=== PATIENT | female | born 1980 | race Caucasian/White ===

== ENCOUNTER 2024-07-27 12:19 | Outpatient (CLI) | payer OTHER, SELFPAY ==
[2024-07-27 12:50] LABS: Anion Gap 7 mmol/L (4-12); Blood Urea Nitrogen 10 mg/dL (7-17); Calcium 8.5 mg/dL (8.4-10.2); Carbon Dioxide 27 mmol/L (22-30); Chloride 102 mmol/L (98-107); Estimated Glomerular Filt Rate > 60; Glucose 135 mg/dL (65-110); Potassium 4.1 mmol/L (3.4-5.0); Sodium 136 mmol/L (137-145)
== END 2024-07-27 12:20 | disposition home or self-care (01) ==
PROVIDERS: Visit Provider Anesthesiology
DX: E11.9 Type 2 diabetes mellitus without complications (principal)
CPT/HCPCS: 36415; 80048

== ENCOUNTER 2024-07-29 01:03 | Day surgery (SDC) | payer OTHER, SELFPAY ==
[2024-07-26 12:38] VITALS: BMI 37.3
--- NOTE | 2024-07-26 12:45 | PC.NURSE ---
Report to the Outpatient Waiting Room, entrance under the green pavilion located off [facility], at time _0930_ on date 07/29/24_. Planned Procedure Time: _1130__.? Time changes happen often and if your time is changed the preop area will call you the afternoon before. - You and your visitor will be asked to self-screen and do not enter if you have any COVID symptoms. Please call surgeon if you need to reschedule. - A mask is optional within the hospital at this time. Patients may have clear liquids (water, carbonated beverages, clear teas, apple juice) until 3 hours prior to surgery with a maximum of 20 ounces. - No food from midnight until time of surgery and no smoking - Infants may have breast milk until 4 hours before surgery, infant formula 6 hours prior to surgery. - Children will be allowed to drink immediately following surgery.? If applicable, please bring a bottle or sippy cup to assist with drinking. Juice, water, soda, and popsicles are readily available.? For infants on formula, please bring formula the day of surgery.? Pacifiers are allowed. Take only the following medications with a SIP of water on the morning of surgery: ___AMLODIPINE, LEVOTHYROXINE DO NOT STOP ANY OF YOUR OTHER PRESCRIPTION MEDICATIONS PRIOR TO SURGERY EXCEPT THE FOLLOWING Medications to discontinue per physician NONE Date to take last dose Please no make-up, nail vincentian, hairspray, perfume, deodorant, or body powder the day of surgery.? No jewelry (including any body piercings) or valuables the day of surgery, leave them at home.? Please take a shower or bath the night before, or the morning of, surgery with an antibacterial soap.? Wear comfortable, loose fitting clothing.? Children are encouraged to wear pajamas. - Jewelry must be removed prior to entering the operating room.? Rings and piercings that are not removed may be cut off. - The hospital will not accept responsibility for valuables.? - Please leave all valuables, including medications, at home the day of surgery. If you are going home after surgery, a licensed regional refrigerated cdl truck driver must drive you home.? - NO public transportation without another adult if you receive anesthesia. - We recommend that an adult stay with you for 24 hours following discharge. - We also recommend that you do not drive, make important decision, drink alcoholic beverages, or take any drugs that were not prescribed by your health care provider for at least 24 hours after your discharge time. For Pediatric surgeries, we recommend two adults accompany the child home. Follow any additional instructions given to you from your surgeon. Telephone instructions given to _PATIENT_and asked if any additional questions and then verbalized understanding. Patient advised to call surgeon office or pre surgery nurse liaison [phone] if any additional questions.
--- NOTE | ~2024-07-29 | XR_ITS ---
EXAMINATION: XR surgery orthopedic DATE: 07/29/2024 13:46 INDICATION: Left foot surgery TECHNIQUE: Single lateral fluoroscopic spot image of the left midfoot was obtained during procedure p erformed by Dr. Banegas. Radiologist was not present for the imaging or procedure. The amount of flu oroscopy time used during this procedure was 0.1 minutes. Total DAP was 0.379 cGycm^2 COMPARISON: None. FINDINGS: Bone alignment appears normal on the single provided projection. No fracture. Joint spaces are relati vely preserved. IMPRESSION: 1. Fluoroscopy utilized during orthopedic procedure at the left foot. See procedure note for further detail. Reviewed, dictated and finalized at location A. IMPRESSION: 1. Fluoroscopy utilized during orthopedic procedure at the left foot. See proce dure note for further detail.
--- NOTE | 2024-07-29 07:20 | WPDHPUPDATE1 ---
History and Physical Update Update Date/Time: 07/29/24 07:20 History and Physical has been reviewed, including an updated exam of the patient. There are NO changes in the patient's condition. Risks, benefits, and alternatives have been discussed and questions answered. Patient agrees to proceed with procedure.
--- NOTE | 2024-07-29 07:26 | P.PNAN_ITS ---
Anes - Initial Pre Proc Eval Procedure: Operation Date: 07/29/24 11:30 Proposed Procedures p Exostectomy Left Dorsal Midfoot - Medardo Banegas Jr., DPM Date/Time: 07/29/24 07:26 Surgeon: Medardo Banegas Jr., DPM Pre Op Diagnosis: Dorsal Midfoot Exostosis Left Foot Patient Data Age: 43 Gender: F Height: 1.83 m Weight: 125 kg Allergies Allergy/AdvReac Type Severity Reaction Status Date / Time No Known Allergies Allergy Verified 07/29/24 09:35 Home Medications Medication Instructions Recorded Confirmed Type amlodipine 5 mg tablet 5 mg PO DAILY 07/26/24 07/29/24 History chlorthalidone 25 mg tablet 25 mg PO DAILY 07/26/24 07/29/24 History insulin lispro 100 unit/mL 200 unit continuous subcutaneous 07/26/24 07/29/24 History subcutaneous solution infusion DAILY levothyroxine 112 mcg tablet 112 mcg PO DAILY 07/26/24 07/29/24 History lisinopril 20 mg tablet 20 mg PO DAILY 07/26/24 07/29/24 History oxycodone-acetaminophen 5 mg-325 6 tablet PO PRN PRN Pain 07/26/24 07/29/24 History mg tablet Patient hx anesthesia problems: none Family hx anesthesia problems: none Results Review: All pre-operative results and documents have been reviewed as part of the pre- operative evaluation. [facility] Past Medical History Medical History (Updated 07/29/24 @ 07:26 by Jose Miguel Stoner DO) Diabetes type 2, controlled Hypertension Hypothyroidism Social History Social History Smoking status: Never smoker Alcohol intake: current Alcohol use details: RARE USE Substance use: never Living arrangements: with family Anes - Eval Final PreProcedure Day of Procedure 07/29/24 07:26 Patient weight: obese Heart: regular rate and rhythm Lungs: clear to auscultation Airway: Mallampati scale class III Neurological: alert and oriented Last oral intake: >/= 8 hours ASA classification: III Emergent: no Anesthetic plan: proceed Anesthesia type and monitoring: general GIVS and standard monitoring Results Review: All pre-operative results and documents have been reviewed as part of the pre- operative evaluation. Informed Consent: The patient's anesthetic plan and its attendant risks and benefits were discussed with the patient/family/POA. Questions were solicited and answers provided to the satisfaction of the patient/family/POA.
[2024-07-29 09:36] VITALS: BP 151/87; PULSE 72; RESP 18; TEMP 36.2; O2SAT 99
[2024-07-29 09:40] LABS: BEDSIDEPREGUCG Negative
[2024-07-29 09:55] LABS: Glucose Point of Care 130 mg/dl (65-105)
[2024-07-29] MEDS: LACTATED RINGERS 1,000 ML 30 ML IV CONT ×2 (09:55→13:45)
--- NOTE | 2024-07-29 11:49 | SUR.PREOP ---
0930 PT AND INFORMED OF SURGERY TIME DELAY. 1115 PT AND UPDATED ABOUT SURGERY TIME DELAY. WARM BLANKET GIVEN. PT DENIES ANY OTHER NEEDS.
[2024-07-29] MEDS: ceFAZolin 2 GM/D5W 50 ML 2 GM/50 ML BAG IVPB (12:57)
[2024-07-29] MEDS: LIDOCAINE HCL 2% PF INJ 5 ML VIAL 10 ML INFILTRATE (13:14)
[2024-07-29 13:45] VITALS: BP 139/74; PULSE 79; RESP 12; O2SAT 97
[2024-07-29 13:52] LABS: Glucose Point of Care 107 mg/dl (65-105)
--- NOTE | 2024-07-29 13:53 | W.PM.PROC2 ---
Procedure Note - Detailed Date of Procedure 07/29/24 Pre-op Diagnosis Dorsal Midfoot Exostosis Left Foot Post-op Diagnosis Same Procedure Performed Dorsal midfoot exostectomy left foot Surgeon Medardo Banegas Jr., DPM Anesthesia General and Local Indications Painful left midfoot bone spur Description of Procedure Procedure in detail: Under mild sedation the Patient was brought into the operating room and placed on the operating table in the supine position. A pneumatic ankle tourniquet was placed about the patient's left ankle. Following general anesthesia and a proximal local anesthetic block with 20ccs of a one to one mix of 2% Lidocaine plain and 0.5% Marcaine plain. Next, the foot and distal ankle was scrubbed in the usual aseptic manner. An Esmarch bandage is not used to exsanguinate the patient's left foot and ankle and the pneumatic ankle tourniquet was inflated to 250mmHG. Attention was directed to the dorsal aspect of the left midfoot where a 3cm incision was made starting along the medial cuneiform joint and extending to the base of the first metatarsal. The incision was made medial to the extensor hallucis longus tendon. All bleeders were ligated and cauterized as necessary. I used a freer periosteal elevator to free the capsular and periosteal structures from the prominent osteophyte. Next, I utilized an osteotome and mallet to resect the large osteophyte. It was sent for gross and histopathology. I flushed the wound with sterile saline and dried the dorsal aspect of the joint with a raytech. Next, I applied a thin layer of bonewax overlying the resected osteophyte to prevent redevelopment of the osteophyte. Next I repaired the capsule with -0 Vicryl with a simple interrupted suture technique. Next, I used 4.0 Vicryl to reapproximate the subcutaneous layer and 4.0 Monocryl in running subcuticular fashion technique to close the skin. I dressed the incision with 1/4 inch steri strips, Adaptic, 4x4 Gauze, 4 inch Kerlix and Coban. I deflated the ankle tourniquet and there was an immediate capillary refill noted to all digits of the foot. No bleeding was noticed through the dressing. I applied a dry sterile dressing to the foot and a CAM boot will be applied. The patient did very well with the procedure and the anesthesia. The patient was transferred to the recovery room with vital signs stable and vascular status intact to all toes of the foot. Following a period of postoperative monitoring, the patient will be discharged home on the following written and oral postoperative instructions: 1. The patient should keep the dressing clean, dry, and intact. Use a cast protector bag with showers. 2. The patient will be strictly nonweightbearing with a knee scooter. 3. Patient should ice and elevate the left foot when at rest. 4. The patient is to contact Dr. Banegas for all postop care and if any problems arise. 5. Prescriptions were written for Percocet 5/325 dispensed 40 to be taken 1 p.o. q.4-6 hours as needed for severe pain. Take 325mg of Aspiring once daily for two weeks to prevent DVT's.. Estimated Blood Loss 1 Drains No Packing No Pathology Yes Complications No immediate complications Condition Stable Disposition Same day
[2024-07-29 14:15] VITALS: BP 144/76; PULSE 64; RESP 14; O2SAT 98
[2024-07-29 14:45] VITALS: BP 140/78; PULSE 58; RESP 14
== END 2024-07-29 15:00 | disposition home or self-care (01) ==
PROVIDERS: PCP Registered Nurse; Visit Provider Podiatrist Foot & Ankle Surgery
PROC: (CPT 28104; principal; 2024-07-29 11:30)
DX: M25.775 Osteophyte, left foot (principal); E11.9 Type 2 diabetes mellitus without complications; I10 Essential (primary) hypertension; E03.9 Hypothyroidism, unspecified; E66.9 Obesity, unspecified; Z68.38 Body mass index [BMI] 38.0-38.9, adult; Z79.4 Long term (current) use of insulin
CPT/HCPCS: 28104; 82948; 88307; 88311; 99199; J0690; J2250; J2405; J2704; J3010; J7120